=== PATIENT | female | born 1940 | race Two or more races ===

== ENCOUNTER 2017-12-04 15:27 | Inpatient (IN) | payer MEDICARE, MEDICAID ==
[~2017-12-04] VITALS: Ht 149.9 cm; Wt 76.9 kg
[~2017-12-04 15:27] MED LIST: BENAZEPRIL HCL40 MG ORAL; CLOPIDOGREL75 MG ORAL; METOPROLOL TART25 MG ORAL; NOVOLIN N100 UNIT/1 SUBQ
[2017-12-04 20:00] VITALS: BP 116/64
[2017-12-04] MEDS ORDERED: Heparin 5000 units/ml inj SUBQ SCH (22:00)
[2017-12-04] MEDS ORDERED: Atorvastatin 80mg tab ORAL SCH (22:45)
[2017-12-04] MEDS ORDERED: Docusate 250mg cap ORAL SCH (22:45)
[2017-12-05] MEDS ORDERED: Levofloxacin 500mg tab ORAL SCH (02:00)
[2017-12-05 03:00] VITALS: BP 123/108
[2017-12-05] MEDS ORDERED: Sodium Chloride 500ML 500 ML IV ONE (03:00)
[2017-12-05 03:06] VITALS: BP 56/21
[2017-12-05] MEDS ORDERED: Cefepime HCl 1 GM in D5W 55 ML IVPB SCH (04:00)
[2017-12-05] MEDS ORDERED: Vancomycin 1250mg/D5W 250ml IVPB ONE (05:00)
[2017-12-05] MEDS ORDERED: NovoLOG Insulin Flexpen SUBQ SCH (06:30)
[2017-12-05] MEDS ORDERED: Albuterol/Ipratropium 3ml neb IN-LINE SCH (07:00)
[2017-12-05] MEDS ORDERED: Imdur 30mg tab ORAL SCH (09:00)
[2017-12-05] MEDS ORDERED: Aspirin Baby 81mg ORAL SCH (09:00)
[2017-12-05] MEDS ORDERED: metFORMIN 500mg tab ORAL SCH (09:00)
[2017-12-05] MEDS ORDERED: Aspirin Baby 81mg NG SCH (09:00)
[2017-12-05] MEDS ORDERED: cefTRIAXone 1 GM in D5W 55 ML IVPB SCH (15:00)
[2017-12-05] MEDS ORDERED: Atorvastatin 80mg tab NG SCH (21:00)
--- NOTE | 2017-12-06 06:40 | Emergency Room Report ---
History of Present Illness General Source: Family Member Present Illness Allergies: Coded Allergies: NO KNOWN ALLERGIES (Unverified Allergy, 06/12/13) Uncoded Allergies: I.V. IODINE (Adverse Reaction, Intermediate, HALLUCINATION., 06/16/13) Patient History Now: No Nursing Documentation-PMH Hx Cardiac Problems: Yes Hx Hypertension: Yes Hx Diabetes: Yes Hx Cancer: No Hx Gastrointestinal Problems: No Hx Neurological Problems: Yes Hx Cerebrovascular Accident: Yes Hx Headaches: Yes Hx Weakness: Yes Physical Exam Vital Signs Date Time Temp Pulse Resp B/P (MAP) Pulse Ox O2 Delivery O2 Flow Rate FiO2 12/04/17 19:30 Nasal Cannula 2.0 12/04/17 19:51 93 12/04/17 20:00 97.3 23 116/64 (81) 97 97.3 12/05/17 05:33 100 Medical Decision Making ER Course The was called to evaluate patient after CODE BLUE. Patient was intubated after laryngoscopy 2. ETT at 22 cm. With initial esophageal placement. This was replaced with good breath sounds subsequently. The patient was subsequently given medications as per code sheet #1. The patient had return of spontaneous circulation and patient was transferred ICU. Patient had recurrent arrest after transferred ICU and had a second CODE BLUE and again briefly had a return spontaneous circulation. As per code sheet number2 the patient subsequently had a return spontaneous circulation briefly and subsequently had arrest again and was pronounced . The Dr. Frantz Sykes was notified of patient's as her family members. Last Vital Signs Date Time Temp Pulse Resp B/P (MAP) Pulse Ox O2 Delivery O2 Flow Rate FiO2 12/05/17 05:33 52 16 100 12/05/17 03:06 56/21 (33) 48 12/04/17 21:00 Nasal Cannula 2.0 12/04/17 20:00 97.3 97.3 Disposition: Condition: Referrals: Frantz Sykes MD (PCP) David Pardo MD Dec 06, 2017 06:40
--- NOTE | 2017-12-06 07:54 | History & Physical ---
History and Physical History & Physicial patient before being seen Ana Maria Zhou NP Dec 06, 2017 07:54
--- NOTE | 2017-12-06 07:57 | Discharge Summary ---
Discharge Summary Hospital Course Date of Admission Dec 04, 2017 at 19:10 Date of Discharge Dec 05, 2017 at 04:07 Admitting Diagnosis TARA Pendleton is a 77 year old female who was admitted on Dec 04, 2017 at 19:10 for Pneumonia Hospital Course Patient was a direct transfer from [place] for completion of care of CApneumonia complicated by ischemic heart disease. Upon arrival to the telemetry unit, patient was nauseous, then became pale and diaphoretic, with a low BP. IVF bolus was ordered. She subsequentlly became unresponsive, and a [employer]ATOR was called and patient was transferred to ICU, where a code blue was called, and resuscitative efforts failed and patient . Discharge Discharge Disposition Patient Ana Maria Zhou NP Dec 06, 2017 07:57 Frantz Sykes MD Dec 06, 2017 20:22
== END 2017-12-05 04:07 | disposition expired | DRG 195 ==
LOC: 2E 19:10 → ICU 12-05 03:10
PROC: 05HQ33Z Insertion of Infusion Device into Left External Jugular Vein, Percutaneous Approach (ICD-10-PCS; principal; 2017-12-05)
PROC: 0BH17EZ Insertion of Endotracheal Airway into Trachea, Via Natural or Artificial Opening (ICD-10-PCS; principal; 2017-12-05)
DX: J18.9 Pneumonia, unspecified organism (principal); I11.9 Hypertensive heart disease without heart failure; Z91.041 Radiographic dye allergy status; E11.9 Type 2 diabetes mellitus without complications; Z86.73 Personal history of transient ischemic attack (TIA), and cerebral infarction without residual deficits
CPT/HCPCS: 92950; 93005; 94003; J1815; J2405